=== PATIENT | female | born 1930 | race Hispanic/Latino ===

== ENCOUNTER → 2019-07-04 | Outpatient (CLI) | payer MEDICARE | END | disposition home or self-care (01) | LOC: OIH 13:19 | PROVIDERS: ATTEND Family Medicine | DX: M19.071 Primary osteoarthritis, right ankle and foot (principal); M21.6X1 Other acquired deformities of right foot | CPT/HCPCS: 73630 ==

== ENCOUNTER 2020-09-26 21:10 | Emergency (ER) | payer MEDICARE ==
[2020-09-26 21:42] LABS: BASOPHILS % (AUTO) 0.6 % (0.0-5.0); HEMATOCRIT 44.5 % (36-48); LYMPHOCYTES % (AUTO) 29.9 % (21.0-51.0); MEAN CORPUSCULAR HEMOGLOBIN 27.5 pg (27.0-33.0); MEAN CORPUSCULAR HGB CONC 32.1 g/dL (32.0-36.0); MEAN CORPUSCULAR VOLUME 85.6 fL (79-99); MONOCYTES % (AUTO) 7.3 % (3.0-13.0); NEUTROPHILS % (AUTO) 60.9 % (40.0-77.0); PLATELET COUNT (AUTO) 319 K/uL (130-400); RED CELL DISTRIBUTION WIDTH 12.7 % (11.0-15.5); WHITE BLOOD COUNT (AUTO) 8.8 K/uL (4.8-10.8)
[2020-09-26 21:44] LABS: APPEARANCE,URINE Clear (CLEAR); BILIRUBIN,URINE Negative (NEGATIVE); COLOR,URINE Yellow (YELLOW); GLUCOSE, URINE (UA) Negative (NEGATIVE); KETONES,URINE Negative (NEGATIVE); LEUKOCYTE ESTERASE ,URINE Negative (NEGATIVE); NITRATE,URINE Negative (NEGATIVE); OCCULT BLOOD,URINE Negative (NEGATIVE); PROTEIN,URINE Negative (NEGATIVE); UROBILINOGEN,URINE 0.2 mg/dL (0.2-1.0)
[2020-09-26 22:00] LABS: CRP QUANTITATIVE < 2.00 mg/L (0.00-9.0)
[2020-09-26 22:05] LABS: ALBUMIN 4.1 g/dL (3.5-5.0); BILIRUBIN,TOTAL 0.9 mg/dL (0.2-1.0); TOTAL PROTEIN, SERUM 8.2 g/dL (6.0-8.3)
[2020-09-26 22:07] LABS: B-TYPE NATRIURETIC PEPTIDE 76 pg/mL (0-100)
== END 2020-09-27 00:30 | disposition home or self-care (01) ==
LOC: EDH 21:10
DX: R53.1 Weakness (principal); G30.9 Alzheimer's disease, unspecified; E11.9 Type 2 diabetes mellitus without complications; I10 Essential (primary) hypertension; E78.00 Pure hypercholesterolemia, unspecified; Z79.899 Other long term (current) drug therapy
CPT/HCPCS: 36415; 71045; 74018; 80053; 81003; 83605; 83735; 83880; 84484; 85025; 86140; 87040; 87088; 93005

== ENCOUNTER → 2021-03-03 | Outpatient (CLI) | payer MEDICARE | END | disposition home or self-care (01) | LOC: OIH 10:41 | PROVIDERS: ATTEND Family Medicine | DX: M85.872 Other specified disorders of bone density and structure, left ankle and foot (principal); L03.119 Cellulitis of unspecified part of limb | CPT/HCPCS: 73630 ==